=== PATIENT | male | born 1975 | race Caucasian/White ===

== ENCOUNTER 2021-02-23 18:11 | Observation (INO) ==
[2021-02-23] MEDS ORDERED: Potassium Chloride 40 MEQ, Lidocaine 1% 2 ML in 0.9 % Sodium Chloride 500 ML IVPB ONE ×2 (18:31→20:39)
[2021-02-23 19:20] LABS: VBG HCO3 27 mEq/L (21-27); VBG PCO2 28 mmHg (41-51); VBG PH 7.59 pH Units (7.32-7.42); VBG PO2 79 mmHg (25-50)
[2021-02-23 19:28] LABS: Potassium 2.8 mEq/L (3.5-5.1)
[2021-02-23 19:37] LABS: Troponin I < 0.03 ng/mL (< 0.04)
[2021-02-23] MEDS ORDERED: 0.9 % Sodium Chloride 1,000 ML IV ONE (20:39)
[2021-02-23] MEDS ORDERED: Magnesium Sulfate 1 GM/102 ML PIGGYBACK IVPB ONE (20:39)
[2021-02-23 23:47] LABS: Adenovirus Not Detected (Not Detect); Bordetella Pertussis Not Detected (Not Detect); Chlamydophila pneumoniae Not Detected (Not Detect); Coronavirus 229E Not Detected (Not Detect); Coronavirus HKU1 Not Detected (Not Detect); Coronavirus NL63 Not Detected (Not Detect); Coronavirus OC43 Not Detected (Not Detect); Human Metapneumovirus Not Detected (Not Detect); Human Rhinovirus/Enterovirus Not Detected (Not Detect); Influenza A Subtype 2009 H1 Not Detected (Not Detect); Influenza B Not Detected (Not Detect); Mycoplasma pneumoniae Not Detected (Not Detect); Parainfluenza Virus 1 Not Detected (Not Detect); Parainfluenza Virus 2 Not Detected (Not Detect); Parainfluenza Virus 3 Not Detected (Not Detect); Parainfluenza Virus 4 Not Detected (Not Detect); Respiratory Syncytial Virus Not Detected (Not Detect); SARS-CoV-2 Not Detected (Not Detect)
[2021-02-23 23:53] LABS: BUN/Creatinine Ratio 8 (6-26); Blood Urea Nitrogen 7 mg/dL (6-20); Calcium 9.2 mg/dL (8.6-10.3); Carbon Dioxide 21 mEq/L (23-29); Chloride 96 mEq/L (98-107); Glucose 283 mg/dL (70-105); Osmolality,Calculated 288 (280-300); Sodium 135 mEq/L (136-145); eGFR For African Americans > 60 (> 60); eGFR For Non-African Americans > 60 (> 60)
[2021-02-24] MEDS ORDERED: Naloxone 0.4 MG/ML INJ IVP PRN (00:28)
[2021-02-24] MEDS ORDERED: Ondansetron 4 MG/2 ML VIAL IVP PRN (00:28)
[2021-02-24] MEDS ORDERED: Dextrose Gel 15 GM/37.5 ML TUBE PO PRN ×2 (00:31)
[2021-02-24] MEDS ORDERED: *HR* Dextrose 50 % in Water (Vial) 50 ML VIAL IVP PRN (00:31)
[2021-02-24] MEDS ORDERED: D5% in Water 1,000 ML IVC PRN (00:31)
[2021-02-24 03:12] LABS: Basophils % 0.1 %; Eosinophils # 0.4 K/mcL (0.0-0.6); Eosinophils % 2.7 %; Hematocrit 43.4 % (37.5-50.1); Hemoglobin 13.2 g/dL (12.9-16.9); Immature Granulocytes % 0.7 % (0-4); Lymphocytes # 1.8 K/mcL (0.6-4.6); Lymphocytes % 13.1 %; Mean Corpuscular HGB Conc 30.4 g/dL (31.6-35.5); Mean Corpuscular Hemoglobin 25.2 pg (28.0-33.3); Mean Platelet Volume 10.9 fL (9.4-12.4); Monocytes # 0.9 K/mcL (0.0-1.3); Monocytes % 6.5 %; Neutrophils # 10.7 K/mcL (1.6-8.9); Platelet Count 284 K/mcL (140-400); Red Blood Count 5.23 M/mcL (4.19-5.50); Red Cell Distribution Width 15.3 % (11.5-14.5); Segmented Neutrophils % 76.9 %
[2021-02-24 03:23] LABS: BUN/Creatinine Ratio 10 (6-26); Blood Urea Nitrogen 8 mg/dL (6-20); Calcium 8.6 mg/dL (8.6-10.3); Carbon Dioxide 29 mEq/L (23-29); Chloride 99 mEq/L (98-107); Glucose 248 mg/dL (70-105); Osmolality,Calculated 289 (280-300); Potassium 2.8 mEq/L (3.5-5.1); Sodium 136 mEq/L (136-145); eGFR For African Americans > 60 (> 60); eGFR For Non-African Americans > 60 (> 60)
[2021-02-24] MEDS ORDERED: Potassium Chloride 40 MEQ, Lidocaine 1% 2 ML in 0.9 % Sodium Chloride 500 ML IVPB ONE ×2 (04:01→08:30)
[2021-02-24] MEDS: Insulin LISPRO 300 UNITS/3 ML VIAL SUBQ SCH ×3 (05:57→16:37)
[2021-02-24] MEDS: Pregabalin 75 MG CAPSULE PO SCH ×2 (14:15→20:51)
[2021-02-24] MEDS: Famotidine 20 MG TABLET PO SCH ×2 (14:32→20:51)
[2021-02-24] MEDS: Insulin DETEMIR 100 UNIT/ML X5UNITS SUBQ SCH (20:50)
[2021-02-24] MEDS: Doxycycline 100 MG CAPSULE PO SCH (20:59)
[2021-02-25] MEDS: Insulin LISPRO 300 UNITS/3 ML VIAL SUBQ SCH ×4 (03:46→16:41)
[2021-02-25] MEDS: lisinopriL 10 MG TABLET PO SCH (08:18)
[2021-02-25] MEDS: hydroCHLOROthiazide 25 MG TABLET PO SCH (08:18)
[2021-02-25] MEDS: metOLazone 5 MG TABLET PO SCH (08:42)
[2021-02-25] MEDS: Famotidine 20 MG TABLET PO SCH ×2 (08:42→20:38)
[2021-02-25] MEDS: Pregabalin 75 MG CAPSULE PO SCH ×2 (08:42→20:38)
[2021-02-25] MEDS: Doxycycline 100 MG CAPSULE PO SCH ×2 (08:42→20:38)
[2021-02-25 09:46] LABS: Hematocrit 46.5 % (37.5-50.1); Hemoglobin 14.3 g/dL (12.9-16.9); Mean Corpuscular HGB Conc 30.8 g/dL (31.6-35.5); Mean Corpuscular Hemoglobin 25.4 pg (28.0-33.3); Mean Corpuscular Volume 82.7 fL (83.0-100.0); Mean Platelet Volume 11.1 fL (9.4-12.4); Platelet Count 304 K/mcL (140-400); Red Blood Count 5.62 M/mcL (4.19-5.50); Red Cell Distribution Width 15.8 % (11.5-14.5); White Blood Count 12.5 K/mcL (4.3-11.1)
[2021-02-25 10:06] LABS: BUN/Creatinine Ratio 10 (6-26); Blood Urea Nitrogen 8 mg/dL (6-20); Carbon Dioxide 27 mEq/L (23-29); Chloride 100 mEq/L (98-107); Glucose 227 mg/dL (70-105); Osmolality,Calculated 287 (280-300); Potassium 3.2 mEq/L (3.5-5.1); Sodium 136 mEq/L (136-145); eGFR For African Americans > 60 (> 60); eGFR For Non-African Americans > 60 (> 60)
[2021-02-25] MEDS ORDERED: Ondansetron 4 MG/2 ML VIAL IVP PRN (13:38)
[2021-02-25] MEDS ORDERED: *HR* Succinylcholine 200 MG/10 ML VIAL IVP ONE (13:49)
[2021-02-25] MEDS ORDERED: Lidocaine -MPF 2% 5 ML VIAL ONE (13:49)
[2021-02-25] MEDS ORDERED: Furosemide 40 MG TABLET PO PRN (14:43)
[2021-02-25] MEDS: Fluconazole 100 MG TABLET PO SCH (16:41)
[2021-02-25] MEDS ORDERED: Ketorolac 15 MG/ML VIAL IVP ONE (20:47)
[2021-02-25] MEDS: Budesonide/Formoterol 160/4.5 1 PUFF INH IH SCH (20:51)
[2021-02-25] MEDS: Insulin DETEMIR 100 UNIT/ML X5UNITS SUBQ SCH (21:14)
[2021-02-26] MEDS: Insulin LISPRO 300 UNITS/3 ML VIAL SUBQ SCH ×4 (01:26→18:36)
[2021-02-26 03:00] LABS: BUN/Creatinine Ratio 11 (6-26); Blood Urea Nitrogen 9 mg/dL (6-20); Calcium 8.9 mg/dL (8.6-10.3); Carbon Dioxide 27 mEq/L (23-29); Chloride 98 mEq/L (98-107); Glucose 229 mg/dL (70-105); Osmolality,Calculated 282 (280-300); Potassium 3.4 mEq/L (3.5-5.1); Sodium 133 mEq/L (136-145); eGFR For African Americans > 60 (> 60); eGFR For Non-African Americans > 60 (> 60)
[2021-02-26] MEDS: *HR* Enoxaparin 40 MG/0.4 ML SYRINGE SQ SCH (04:26)
[2021-02-26] MEDS: Budesonide/Formoterol 160/4.5 1 PUFF INH IH SCH ×2 (08:00→22:49)
[2021-02-26] MEDS: Pregabalin 75 MG CAPSULE PO SCH ×2 (09:12→21:10)
[2021-02-26] MEDS: lisinopriL 10 MG TABLET PO SCH (09:12)
[2021-02-26] MEDS: Famotidine 20 MG TABLET PO SCH ×2 (09:12→21:10)
[2021-02-26] MEDS: metOLazone 5 MG TABLET PO SCH (09:12)
[2021-02-26] MEDS: Fluconazole 100 MG TABLET PO SCH (09:12)
[2021-02-26] MEDS: Doxycycline 100 MG CAPSULE PO SCH ×2 (09:12→21:09)
[2021-02-26] MEDS: hydroCHLOROthiazide 25 MG TABLET PO SCH (09:13)
[2021-02-26 13:54] LABS: Magnesium 1.8 mg/dL (1.6-2.6)
[2021-02-26] MEDS: Insulin DETEMIR 100 UNIT/ML X5UNITS SUBQ SCH (21:09)
[2021-02-27] MEDS: Insulin LISPRO 300 UNITS/3 ML VIAL SUBQ SCH ×4 (00:34→18:26)
[2021-02-27] MEDS: *HR* Enoxaparin 40 MG/0.4 ML SYRINGE SQ SCH (05:48)
[2021-02-27 06:28] LABS: Hematocrit 51.1 % (37.5-50.1); Mean Corpuscular HGB Conc 31.3 g/dL (31.6-35.5); Mean Corpuscular Hemoglobin 25.2 pg (28.0-33.3); Mean Corpuscular Volume 80.5 fL (83.0-100.0); Mean Platelet Volume 11.3 fL (9.4-12.4); Platelet Count 319 K/mcL (140-400); Red Blood Count 6.35 M/mcL (4.19-5.50); Red Cell Distribution Width 16.9 % (11.5-14.5); White Blood Count 16.3 K/mcL (4.3-11.1)
[2021-02-27 06:36] LABS: Carbon Dioxide 26 mEq/L (23-29); Chloride 95 mEq/L (98-107); Glucose 210 mg/dL (70-105); Magnesium 1.9 mg/dL (1.6-2.6); Potassium 3.4 mEq/L (3.5-5.1); Sodium 132 mEq/L (136-145); eGFR For African Americans > 60 (> 60); eGFR For Non-African Americans > 60 (> 60)
[2021-02-27 06:39] LABS: BUN/Creatinine Ratio 16 (6-26); Blood Urea Nitrogen 16 mg/dL (6-20); Osmolality,Calculated 281 (280-300)
[2021-02-27] MEDS: Fluconazole 100 MG TABLET PO SCH (08:03)
[2021-02-27] MEDS: lisinopriL 10 MG TABLET PO SCH (08:04)
[2021-02-27] MEDS: Famotidine 20 MG TABLET PO SCH (08:04)
[2021-02-27] MEDS: Pregabalin 75 MG CAPSULE PO SCH (08:05)
[2021-02-27] MEDS: Doxycycline 100 MG CAPSULE PO SCH (08:05)
[2021-02-27] MEDS: Budesonide/Formoterol 160/4.5 1 PUFF INH IH SCH (10:59)
[2021-02-27] MEDS ORDERED: Potassium Chloride Elixir 20 MEQ/15 ML UDC PO ONE (13:28)
[2021-02-27 14:47] VITALS: BP 125/84; PULSE 75; TEMP 97.5; O2SAT 95
== END 2021-02-27 19:26 | disposition home or self-care (01) ==
LOC: 3BNU 18:11 → EMEROOARM 18:11 → SUATTDRO 02-24 00:27 → 3BNU 02-24 01:15
PROVIDERS: ADMIT Internal Medicine; ATTEND Registered Nurse